=== PATIENT | male | born 1950 | race Caucasian/White ===

== ENCOUNTER → 2020-11-09 | Outpatient (CLI) | payer MEDICARE | LOC: M.WC 09:28 | PROVIDERS: ATTEND Surgery | DX: S51.802A Unspecified open wound of left forearm, initial encounter (principal); L98.492 Non-pressure chronic ulcer of skin of other sites with fat layer exposed; C44.699 Other specified malignant neoplasm of skin of left upper limb, including shoulder; C44.799 Other specified malignant neoplasm of skin of left lower limb, including hip; Z79.82 Long term (current) use of aspirin; Z79.899 Other long term (current) drug therapy; X58.XXXA Exposure to other specified factors, initial encounter; Y93.89 Activity, other specified; Y92.89 Other specified places as the place of occurrence of the external cause; Y99.8 Other external cause status ==

== ENCOUNTER → 2020-11-16 | Outpatient (CLI) | payer MEDICARE | LOC: M.WC 08:22 | PROVIDERS: ATTEND Surgery | DX: S51.802D Unspecified open wound of left forearm, subsequent encounter (principal); L98.492 Non-pressure chronic ulcer of skin of other sites with fat layer exposed; C44.699 Other specified malignant neoplasm of skin of left upper limb, including shoulder; C44.799 Other specified malignant neoplasm of skin of left lower limb, including hip; Z79.82 Long term (current) use of aspirin; Z79.899 Other long term (current) drug therapy; X58.XXXD Exposure to other specified factors, subsequent encounter ==

== ENCOUNTER → 2020-11-30 | Outpatient (CLI) | payer MEDICARE | LOC: M.WC 07:42 | PROVIDERS: ATTEND Surgery | DX: S51.802D Unspecified open wound of left forearm, subsequent encounter (principal); L98.492 Non-pressure chronic ulcer of skin of other sites with fat layer exposed; C44.799 Other specified malignant neoplasm of skin of left lower limb, including hip; Z79.82 Long term (current) use of aspirin; X58.XXXD Exposure to other specified factors, subsequent encounter ==

== ENCOUNTER → 2020-12-07 | Outpatient (CLI) | payer MEDICARE | LOC: M.WC 09:00 | PROVIDERS: ATTEND Surgery | DX: S51.802D Unspecified open wound of left forearm, subsequent encounter (principal); L98.492 Non-pressure chronic ulcer of skin of other sites with fat layer exposed; C44.799 Other specified malignant neoplasm of skin of left lower limb, including hip; C44.699 Other specified malignant neoplasm of skin of left upper limb, including shoulder; Z79.82 Long term (current) use of aspirin; X58.XXXD Exposure to other specified factors, subsequent encounter ==

== ENCOUNTER → 2020-12-14 | Outpatient (CLI) | payer MEDICARE | LOC: M.WC 08:40 | PROVIDERS: ATTEND Surgery | DX: S51.802D Unspecified open wound of left forearm, subsequent encounter (principal); L98.492 Non-pressure chronic ulcer of skin of other sites with fat layer exposed; C44.799 Other specified malignant neoplasm of skin of left lower limb, including hip; C44.699 Other specified malignant neoplasm of skin of left upper limb, including shoulder; Z79.82 Long term (current) use of aspirin; X58.XXXD Exposure to other specified factors, subsequent encounter ==

== ENCOUNTER → 2020-12-21 | Outpatient (CLI) | payer MEDICARE | LOC: M.WC 08:52 | PROVIDERS: ATTEND Surgery | DX: S51.802D Unspecified open wound of left forearm, subsequent encounter (principal); C44.799 Other specified malignant neoplasm of skin of left lower limb, including hip; Z79.82 Long term (current) use of aspirin; X58.XXXD Exposure to other specified factors, subsequent encounter ==